=== PATIENT | male | born 1960 | race Caucasian/White ===

== ENCOUNTER 2018-03-18 17:04 | Emergency (ER) | payer BC ==
[~2018-03-18] VITALS: Ht 170.2 cm; Wt 89.8 kg
[2018-03-18 17:34] VITALS: BP 132/74; Ht 170.2 cm; Wt 89.8 kg
== END 2018-03-18 22:30 | disposition home or self-care (01) ==
LOC: ED 17:04
DX: S93.402A Sprain of unspecified ligament of left ankle, initial encounter (principal); S93.602A Unspecified sprain of left foot, initial encounter; S83.92XA Sprain of unspecified site of left knee, initial encounter; R03.0 Elevated blood-pressure reading, without diagnosis of hypertension; W10.9XXA Fall (on) (from) unspecified stairs and steps, initial encounter; Y93.89 Activity, other specified; Y92.89 Other specified places as the place of occurrence of the external cause; Y99.8 Other external cause status